=== PATIENT | male | born 2000 | race Hispanic/Latino ===

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

== ENCOUNTER 2020-06-01 23:49 | Emergency (ER) | payer BC ==
[2020-06-02 01:41] LABS: Bacteria/HPF 1+ HPF (None Seen); Bilirubin Negative (Negative); Blood, Urine Negative (Negative); Clarity Turbid (Clear); Glucose, Urine (Dipstick) Normal (Negative); Ketone, Urine Negative (Negative); Leukocyte 500 Leu/uL (Negative); Nitrite Negative (Negative); Protein, Urine (Dipstick) 10 mg/dL (Neg-Trace); RBC/HPF 0-3 HPF (0-3); Specific Gravity, Urine 1.009 (1.002-1.036); Squamous Epithelial None Seen HPF (0-3); Urobilinogen Normal mg/dL (Less than 2); WBC/HPF Greater than 50 HPF (0-3)
[2020-06-02] MEDS ORDERED: Doxycycline 100 MG CAP PO SCH (02:30)
--- NOTE | 2020-06-02 08:05 | ULT ---
PRELIMINARY REPORT/[facility]/EMERGENCY AFTER HOURS PROCEDURE: EXAM: US Scrotum. CLINICAL HISTORY: HX: PAIN, SWELLING LT TESTICLE. TECHNIQUE: Real-time ultrasound of the scrotum with color Doppler and image documentation. COMPARISON: None provided. FINDINGS: RIGHT TESTICLE: No mass. Normal Doppler flow. Measures 5.2 x 3.1 x 3.5 cm LEFT TESTICLE: No mass. Increased Doppler flow. Measures 4.5 x 3.3 x 3.4 cm EPIDIDYMIDES: The RIGHT epididymis appears normal however the LEFT side appears enlarged and hypervas cular. SCROTUM: Bilateral hydroceles are seen. IMPRESSION: The findings are consistent with left-sided epididymoorchitis ELECTRONICALLY SIGNED BY: Alejo Hall MD Jun 02, 2020 2:07:52 AM [facility] FINAL REPORT EMERGENT AFTER HOURS TESTICULAR ULTRASOUND: HISTORY: Left testicular swelling and pain. COMPARISON: None. IMPRESSION: 1. Enlarged left epididymis with heterogeneity involving the distal body and tail of the left epididy mis. Increased vascular flow is seen in the left epididymis. Left testicle demonstrates normal echogenicity without evidence of a mass, but there is increased flow in the left testicle compared to the right. Findings are suggestive of epididymoorchitis. Clinical correlation is suggested. 2. Normal-appearing right testicle and right epididymis. Arterial flow is documented in the right yeison ticle. 3. Small bilateral pleural effusions. 4. Findings are in agreement with preliminary report by [facility]. Transcribed Date/Time: 06/02/2020 8:47 AM
== END 2020-06-02 02:42 ==
LOC: ERS 23:49
DX: N45.3 Epididymo-orchitis (principal)
CPT/HCPCS: 76870; 81003; 81015; 93976

== ENCOUNTER 2022-07-22 21:29 | Emergency (ER) | payer BC ==
[2022-07-22] MEDS ORDERED: Lidocaine 1% PF 5 ML VIAL ONE (21:49)
== END 2022-07-22 22:31 | disposition home or self-care (01) ==
LOC: ERS 21:29
DX: L60.0 Ingrowing nail (principal)
CPT/HCPCS: 11750

== ENCOUNTER 2022-09-28 13:52 | Emergency (ER) | payer BC | END 2022-09-28 14:53 | disposition home or self-care (01) | LOC: ERS 13:52 | DX: J06.9 Acute upper respiratory infection, unspecified (principal); B34.9 Viral infection, unspecified | CPT/HCPCS: 99283 ==